=== PATIENT | male | born 1965 ===

== ENCOUNTER 2016-11-04 11:18 | Observation (INO) | payer MEDICAID ==
[2016-10-29 10:43] VITALS: BMI 28.7
[2016-11-04] MEDS ORDERED: Succinylcholine Chloride 20 mg/ml Syr (5 ml) IV ONE (13:43)
[2016-11-04] MEDS ORDERED: Midazolam 2 MG/2 ML VIAL ONE (13:43)
[2016-11-04] MEDS ORDERED: Propofol 10 mg/ml Inj (20 ML) ONE (13:43)
[2016-11-04] MEDS ORDERED: Lidocaine 1% Inj (20ml) ONE (13:47)
[2016-11-04] MEDS ORDERED: Bupivacaine-Epi 0.25%-1:200,000 PF Inj ONE (13:47)
[2016-11-04] MEDS ORDERED: Rocuronium 10 mg/ml (5 ml) ONE (13:49)
[2016-11-04] MEDS ORDERED: Lactated Ringer's 1,000 ML IV ONE ×3 (13:55→18:45)
[2016-11-04] MEDS ORDERED: Vancomycin 1 gm/D5W 200 ml 1 GM/200 ML BAG IVPB ONE (14:04)
[2016-11-04] MEDS ORDERED: Neostigmine Methylsulfate 3mg/3ml Syringe IV ONE (16:00)
[2016-11-04] MEDS ORDERED: Lidocaine Hydrochloride 10 ML INJ ONE (16:04)
--- NOTE | 2016-11-04 16:37 | PCM.SURG1 ---
Surgeon's Initial Post Op Note - Surgeon's Notes Surgeon: Dr. Contreras Manufacturing Engineering Technician: Dr. Jae Dupont PGY-2 Type of Anesthesia: General Endo Pre-Operative Diagnosis: bilateral inguinal hernia Operative Findings: see operative report Post-Operative Diagnosis: see operative report Operation Performed: robotic bilateral inguinal hernia repair w/ mesh placement x2 Specimen/Specimens Removed: lipoma of spermatic cord (left) Estimated Blood Loss: EBL {In ML}: 30 Blood Products Given: N/A Drains Used: No Drains Post-Op Condition: Good Date of Surgery/Procedure: 11/04/16 Time of Surgery/Procedure: 16:36
[2016-11-04] MEDS: HYDROmorphone 0.5 mg/0.5 ml ISec IVP PRN ×4 (16:46→17:18)
[2016-11-04] MEDS ORDERED: HYDROmorphone 0.5 mg/0.5 ml ISec ONE (23:04)
[2016-11-04] MEDS ORDERED: Oxycodone/Acetaminophen 5/325 mg Tab PO PRN (23:05)
[2016-11-04] MEDS ORDERED: HYDROmorphone 0.5 mg/0.5 ml ISec IVP STA (23:05)
[2016-11-05] MEDS: Oxycodone/Acetaminophen 5/325 mg Tab PO PRN ×2 (01:13→09:34)
[2016-11-05] MEDS ORDERED: Oxycodone/Acetaminophen 5/325 mg Tab PO STA (02:29)
--- NOTE | 2016-11-05 04:42 | OP ---
PROCEDURE DATE: 11/04/2016 PREOPERATIVE DIAGNOSES: 1. Right inguinal hernia. 2. Left inguinal hernia. POSTOPERATIVE DIAGNOSES: 1. Right direct inguinal hernia. 2. Left direct inguinal hernia. 3. Left large lipoma of the cord. PROCEDURE: 1. Robotic right inguinal hernia repair with mesh. 2. Robotic left inguinal hernia repair with mesh. 3. Robotic excision of lipoma of the cord, left side. SURGEON: Dr. Contreras. TYPE OF ANESTHESIA: General endotracheal tube anesthesia. ESTIMATED BLOOD LOSS: Around 10 mL. DRAINS: None. PATHOLOGY: The lipoma of the cord was sent for the pathology. COMPLICATIONS: None. INTRAOPERATIVE FINDINGS: The patient had right direct inguinal hernia and left direct inguinal hernia with lipoma of the cord. DESCRIPTION OF PROCEDURE: This is a 51-year-old male, who was diagnosed with right inguinal hernia as well as left inguinal hernia and the patient was consented for robotic right inguinal hernia repair with mesh as well as robotic left inguinal hernia repair with mesh, brought to the OR, placed supine on operating table. After induction of the anesthesia, the abdomen was prepped and draped in usual sterile fashion. The Reese catheter was placed and supraumbilical transverse incision was made after incising skin, subcutaneous tissue and fascia. The peritoneal cavity was entered. Pneumoperitoneum was created and another three 8-mm port was placed in upper abdomen. The robot was brought in. Camera arm as well as arm 1 and arm 2 were docked and through the console, the peritoneal dissection was done from the left ASIS to right ASIS and the dissection was carried down in the midline up to the space of Retzius and the pubic symphysis and laterally it was carried down up to the lateral abdominal wall and peritoneal reflection and the patient had right direct, as well as left direct inguinal hernia. Now the dissection was continued on the left side and the left abdominal wall was dissected and the dissection was carried down up to the peritoneal reflection. Inferior epigastric artery, vas deferens and spermatic cord vessels were identified on the right side. Inferior epigastric artery, vas deferens and spermatic cord vessels were identified on the left side. The patient also had a large lipoma of cord that was also excised and it was sent off the table for the pathology and after proper hemostasis, first the left-sided mesh was implanted and after the proper implantation of the mesh, the right-sided mesh was properly implanted and peritoneum was sutured with interrupted 2-0 Vicryl as well as continuous 2-0 V-Loc PDS suture and after that, all instruments were taken out. Robot was undocked. All the ports were taken out under vision. Pneumo was inflated. Umbilical port site was closed in 2 layers, the fascia with a 0 Vicryl interrupted suture, skin with 4-0 Monocryl and dry sterile dressing was applied. The patient tolerated the procedure well. Count of the instrument was correct. There was no apparent complication. Diallo Contreras MD [facility]
--- NOTE | 2016-11-05 07:52 | CP.PCM.PN ---
Subjective - Date & Time of Evaluation Date of Evaluation: 11/05/16 Time of Evaluation: 07:51 - Subjective Subjective: General sx progress note for Dr. Contreras-Emmie De La Torre, PGY-1 Pt S & E at bedside. Pt with urinary retention post op- unable to place Reese. Pt reports frequent urination overnight, suprapubic pain improved since yesterday. No other complaints. Objective - Vital Signs/Intake and Output Vital Signs (last 24 hours): Temp Pulse Resp BP Pulse Ox 98.8 F 88 20 109/70 99 11/05/16 04:00 11/05/16 04:00 11/05/16 04:00 11/05/16 04:00 11/05/16 04:00 Intake and Output: 11/05/16 11/05/16 06:59 18:59 Intake Total 120 Output Total 2040 900 Balance -1920 -900 - Medications Medications: Current Medications Ondansetron HCl (Zofran Inj) 4 mg IVP Q6H PRN PRN Reason: Nausea/Vomiting Oxycodone/Acetaminophen (Percocet 5/325 Mg Tab) 1 tab PO Q4H PRN PRN Reason: Pain, moderate (4-7) Stop: 11/07/16 16:38 Last Admin: 11/05/16 01:13 Dose: 1 tab Oxycodone/Acetaminophen (Percocet 5/325 Mg Tab) 2 tab PO Q4H PRN PRN Reason: Pain, severe (8-10) Stop: 11/07/16 23:06 Pneumococcal Polyvalent Vaccine (Pneumovax 23 Vaccine) 0.5 ml IM .ONCE ONE Stop: 11/06/16 10:01 - Constitutional Appears: Non-toxic, No Acute Distress - Head Exam Head Exam: ATRAUMATIC, NORMAL INSPECTION, NORMOCEPHALIC - Eye Exam Eye Exam: EOMI, Normal appearance - ENT Exam ENT Exam: Mucous Membranes Moist, Normal Exam - Neck Exam Neck Exam: Full ROM - Respiratory Exam Respiratory Exam: Clear to Ausculation Bilateral, NORMAL BREATHING PATTERN - Cardiovascular Exam Cardiovascular Exam: REGULAR RHYTHM - GI/Abdominal Exam GI & Abdominal Exam: Soft, Normal Bowel Sounds - Extremities Exam Extremities Exam: Full ROM - Neurological Exam Neurological Exam: Alert, Awake, Oriented x3 - Psychiatric Exam Psychiatric exam: Normal Affect, Normal Mood - Skin Skin Exam: Dry, Normal Color, Warm Assessment and Plan - Assessment and Plan (Free Text) Assessment: 51M w/robotic bilateral inguinal hernia repair w/ mesh placement x2 POD#1 Plan: -urinating -plan to d/c home today -Follow up with Dr Contreras in 7-10 days -OK to remove dressings in 4 days -Leave steri-strips in place, they will fall off on their own DW attending Britt, PGY-1
[2016-11-05 08:09] VITALS: BP 109/65; PULSE 73; RESP 17; TEMP 98.7; O2SAT 97
[2016-11-05] MEDS ORDERED: Pneumococcal 23-Valent Vaccine IM ONE (10:30)
== END 2016-11-05 11:31 | disposition home or self-care (01) ==
LOC: C.SDS 11:18 → C.6T 22:43
PROVIDERS: ADMIT Surgery Surgical Critical Care; ATTEND Surgery Surgical Critical Care
DX: K40.20 Bilateral inguinal hernia, without obstruction or gangrene, not specified as recurrent (principal); D17.6 Benign lipomatous neoplasm of spermatic cord; Z23 Encounter for immunization; R33.8 Other retention of urine
CPT/HCPCS: 49650; 55559; 88304; 90471; 90732; C1781; G0378; J1170; J2250; J2405; J2704; J2710; J3010; J3370; J7120